=== PATIENT | female | born 1945 | race African-American/Black ===

== ENCOUNTER 2022-05-15 20:29 | Emergency (ER) | payer MEDICARE ==
[2022-05-15 21:24] LABS: BASOPHIL 0.4 % (0-2); EOSINOPHIL 0.4 % (0-7); HCT 40.6 % (37.0-47.0); HGB 12.9 g/dl (12.5-16.0); LYMPHOCYTE 5.9 % (15-48); MCH 30.1 pg (25.0-31.0); MCHC 31.8 g/dL (32.0-36.0); MCV 94.6 fL (78.0-100.0); MONOCYTE 7.9 % (0-12); MPV 9.2 fL (6.0-9.5); NRBC 0; PLT 237 K/uL (150-400); RBC 4.29 M/uL (4.20-5.40); RDW 13.2 % (11.5-14.0); WBC 7.5 K/uL (4.0-10.5)
[2022-05-15 21:44] LABS: ALBUMIN 3.2 g/dL (3.4-5.0); BILIRUBIN - TOTAL 0.3 mg/dL (0.2-1.0); BUN/CREAT RATIO (CALC) 26.5 RATIO; CREATININE 0.68 mg/dL (0.51-0.95); GLOBULIN (CALCULATION) 3.5 g/dL; POTASSIUM 3.9 mmol/L (3.5-5.1); TOTAL PROTEIN 6.7 g/dL (6.4-8.2)
[2022-05-15 22:06] LABS: INFLUENZA A NAA NEGATIVE (NEGATIVE)
[2022-05-15 22:13] LABS: CORONAVIRUS 2019 SARS-COV-2 POSITIVE (NEGATIVE)
[2022-05-15 22:21] LABS: BILIRUBIN NEGATIVE (NEGATIVE); BLOOD TRACE-INTACT Ery/uL (NEGATIVE); CLARITY CLEAR (CLEAR); COLOR YELLOW (YELLOW); GLUCOSE (U) NORMAL (NORMAL); LEUKOCYTES TRACE Leu/uL (NEGATIVE); NITRITE POSITIVE (NEGATIVE); PROTEIN NEGATIVE (NEGATIVE); UROBILINOGEN 0.2 mg/dL (0.2-1.0)
[2022-05-15 22:30] LABS: BACTERIA 1+; SQUAMOUS EPITHELIAL CELLS RARE
[2022-05-15 22:31] LABS: AMORPHOUS URATES CRYSTALS TRACE
== END 2022-05-16 04:52 | disposition other institution (70) ==
LOC: FER 20:29
PROVIDERS: Emergency Medicine
DX: G91.9 Hydrocephalus, unspecified (principal); N39.0 Urinary tract infection, site not specified; U07.1 COVID-19; I10 Essential (primary) hypertension; Z79.899 Other long term (current) drug therapy
CPT/HCPCS: 36415; 70450; 71045; 80053; 81001; 84484; 85025; 87088; 93005; J1885; U0002